=== PATIENT | male | born 1935 | race Caucasian/White ===

== ENCOUNTER 2018-09-13 06:53 | Inpatient (IN) | payer OTHER ==
[2018-09-13 07:45] LABS: #Eosinphils 0.1 thou/uL (0.0-0.7); #Lymphocytes 1.3 thou/uL (1.20-3.40); #Neutrophils 4.8 thou/uL (1.40-6.50); %Basophils 0.1 % (0.0-1.0); %Eosinophils 0.9 % (0.0-10.0); %Lymphocytes 17.9 % (21.0-51.0); %Monocytes 13.6 % (0.0-10.0); %Neutrophils 67.5 % (42.0-75.0); Hemoglobin 15.6 g/dL (14.0-18.0); Mean Corpuscular HGB CONC 32.7 g/dL (32.0-36.0); Mean Corpuscular Hemoglobin 31.6 pg (27.0-31.0); Mean Corpuscular Volume 96.7 fL (78.0-98.0); Mean Platelet Volume 8.3 fL (7.4-10.4); Platelet Count 242 thou/uL (130-400); Red Blood Cell (RBC) Count 4.95 mill/uL (4.70-6.10); White Blood Cell (WBC) Count 7.1 thou/uL (4.8-10.8)
[2018-09-13 07:49] LABS: INR-International Normal Ratio 1.1; PTT 28.3 SEC (22.9-36.1); Prothrombin Time 14.2 SEC (12.0-14.7)
[2018-09-13 08:11] LABS: ALT (SGPT) 22 U/L (8-55); AST (SGOT) 29 U/L (5-34); Alkaline Phosphatase 65 U/L (40-150); Anion Gap 16 mmol/L (10-20); BUN (Urea Nitrogen) 15 mg/dL (8.4-25.7); Bilirubin, Total 0.7 mg/dL (0.2-1.2); Calc. Creatinine Clearance 0 mL/min (70-130); Calcium 8.8 mg/dL (7.8-10.44); Carbon Dioxide 22 mmol/L (23-31); Chloride 102 mmol/L (98-107); Estimated GFR-MDRD 84; Globulin 2.6 g/dL (2.4-3.5); Glucose 107 mg/dL (83-110); Magnesium 2.1 mg/dL (1.6-2.6); Potassium 3.6 mmol/L (3.5-5.1); Protein, Total 6.6 g/dL (5.8-8.1); Sodium 136 mmol/L (136-145)
[2018-09-13 08:55] LABS: Bilirubin Negative (Negative); Blood, Urine Negative (Negative); Clarity CLEAR (Clear); Glucose, Urine (Dipstick) Negative (Negative); Leukocyte Negative (Negative); Nitrite Negative (Negative); Protein, Urine (Dipstick) Negative (Neg-Trace); Specific Gravity, Urine 1.013 (1.002-1.036); pH, Urine 6.5 (5.0-9.0)
--- NOTE | 2018-09-13 09:08 | RAD ---
RADIOGRAPH CHEST 1 VIEW: Date: 09-13-18 Time: 6:31 a.m. HISTORY: 83-year-old male with chest pain and tachycardia with atrial fibrillation. COMPARISON: None available. FINDINGS: Cardiac size within normal limits for AP technique. Nonspecific mildly increased density at the media l lung bases bilaterally. Upper and mid lung zones are grossly clear. Atherosclerotic calcification a nd ectasia of the thoracic aorta. No pneumothorax or pulmonary edema. IMPRESSION: 1. Nonspecific mild bibasilar pulmonary densities, probably chronic. 2. Atherosclerosis, ectasia and tortuosity of thoracic aorta. 3. No definite acute findings. AMNA POS: LORETO
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
[2018-09-13] MEDS ORDERED: Aspirin 81 mg Enteric Coated Tablet PO SCH (11:00)
[2018-09-13 12:04] LABS: Troponin I Less than 0.010 ng/mL (< 0.028)
[2018-09-13 12:18] VITALS: BMI 26.8
[2018-09-13 14:31] LABS: Troponin I Less than 0.010 ng/mL (< 0.028)
[2018-09-13] MEDS ORDERED: Digoxin 0.5 MG/2 ML AMP SLOW IVP SCH ×2 (17:45→22:00)
[2018-09-13] MEDS ORDERED: Mometasone 100 MCG HFA INHALER INH SCH (20:00)
[2018-09-13] MEDS ORDERED: Fluticasone Propionate HFA 110 MCG AER INH SCH (21:00)
[2018-09-13] MEDS: Metoprolol Tartrate 25 MG TAB PO SCH (21:51)
--- NOTE | 2018-09-14 00:29 | CON ---
DATE OF CONSULTATION: HISTORY OF PRESENT ILLNESS: Karina Stark is an 83-year-old white male inmate, who apparently recently was moved from another nursing home facility. Yesterday morning, he started to have pain on the left side of his chest, radiated up to the right side of his face as well as feeling weak, somewhat diaphoretic. States that he could feel his heart beating rapidly with that. He denies any cardiac problems in the past. He is on verapamil for unclear reasons, but probably for hypertension. He ultimately went to [facility] and was found to have an irregular heart rhythm and referred for further evaluation. PAST MEDICAL HISTORY: Hypertension, asthma, umbilical hernia, vision loss, arthritis. PAST SURGICAL HISTORY: Tonsillectomy. MEDICATIONS: 1. Calcium carbonate 500 daily. 2. Colace 100 b.i.d. 3. Atrovent 2 puffs q.i.d. 4. Flovent inhalation b.i.d. 5. Ibuprofen 600 b.i.d. 6. Meclizine 25 t.i.d. 7. Omeprazole 20 daily. 8. Prazosin 10 mg at bedtime. 9. Verapamil 240 daily. 10. Hydrochlorothiazide 25 mg daily, which apparently was recently increased to 50 daily. SOCIAL HISTORY: He smoked until 1984. He does not drink alcohol. He is an inmate. FAMILY HISTORY: Negative for coronary artery disease. REVIEW OF SYSTEMS: A 12-point review of systems is otherwise unremarkable. PHYSICAL EXAMINATION: VITAL SIGNS: Blood pressure 120/70, pulse 70. HEENT: PERRL. NECK: Supple. CHEST: Clear. CARDIAC: S1 and S2 normal without any S3, S4, or murmurs. Carotid upstrokes normal without bruits. ABDOMEN: Normal bowel sounds without tenderness or organomegaly or masses. EXTREMITIES: Revealed no clubbing, cyanosis, or edema. NEUROLOGICAL: Grossly intact. SKIN: Warm and dry. LABORATORY DATA: EKG from nursing home is incomplete without rhythm strip or V1 and V2. I doubt that this represents atrial fibrillation in that there appears to be a P-wave prior to each QRS that is discernible. This appears to be paroxysmal atrial tachycardia. Also, the EKG here likewise shows a P-wave in front of each QRS with episodes of paroxysmal atrial tachycardia. Cardiac enzymes are unremarkable. Sodium 136, potassium 3.6, chloride 102, carbon dioxide 22, BUN 15, and creatinine 0.87. CBC is unremarkable. INR 1.1. Urinalysis was unremarkable. IMPRESSION: 1. Chest discomfort associated with tachycardia and negative cardiac enzymes. 2. Paroxysmal atrial tachycardia, I doubt that this represents atrial fibrillation in that there appears to be a P-wave in front of most QRS', where it is discernible. 3. Hypertension. 4. Former smoker. 5. Asthma. PLAN: Echocardiogram will be performed to assess left ventricular function. With his 2 hours of chest discomfort, he will undergo Lexiscan Cardiolite testing. He will be loaded with digoxin and be placed on low-dose beta-leon. I will follow the patient with you. Job ID: [id number] [facility]
--- NOTE | 2018-09-14 06:21 | PDOC.FM ---
- Subjective Subjective: Pt reports doing well this morning. Denies any acute events overnight. Denies any SOB. Denied any chest pain overnight. Pt denies any dizziness, lightheadness or vision changes. Pt denies any fever or chills. - Objective MAR Reviewed: Yes Vital Signs & Weight: Vital Signs (12 hours) Temp Pulse Resp BP Pulse Ox 09/14/18 04:00 97.5 F L 63 18 137/64 97 09/13/18 21:51 72 09/13/18 20:25 66 16 99 09/13/18 19:40 97.9 F 72 22 H 143/64 H 98 Weight Weight 77.655 kg Result Diagrams: 09/13/18 07:30 09/13/18 07:30 EKG Reviewed by me: Yes Radiology Reviewed by me: Yes (ECHO pending. No other new imaging to review) Phys Exam - Physical Examination Constitutional: NAD HEENT: PERRLA, moist MMs Neck: no nodes, no JVD, supple, full ROM Respiratory: no wheezing, no rales, no rhonchi, clear to auscultation bilateral Cardiovascular: RRR, no significant murmur Gastrointestinal: soft, non-tender, no distention, positive bowel sounds Musculoskeletal: no edema, pulses present Neurological: non-focal, normal sensation, moves all 4 limbs Lymphatic: no nodes Psychiatric: normal affect, A&O x 3 Skin: no rash, normal turgor Dx/Plan (1) Atrial tachycardia, paroxysmal Status: Acute (2) New onset a-fib Code(s): I48.91 - UNSPECIFIED ATRIAL FIBRILLATION Status: Ruled-out (3) Atrial fibrillation with RVR Code(s): I48.91 - UNSPECIFIED ATRIAL FIBRILLATION Status: Ruled-out (4) HTN (hypertension) Code(s): I10 - ESSENTIAL (PRIMARY) HYPERTENSION Status: Acute (5) Asthma Code(s): J45.909 - UNSPECIFIED ASTHMA, UNCOMPLICATED Status: Acute (6) GERD (gastroesophageal reflux disease) Code(s): K21.9 - GASTRO-ESOPHAGEAL REFLUX DISEASE WITHOUT ESOPHAGITIS Status: Acute - Plan Plan: Paroxysmal Atrial Tachycardia w/ Chest Discomfort -Tachy resolved at time of assessment in the ER. -PT rate in 90's and low 100's. Started on ASA. No need for medication for rate control at this time -Cardiology- Dr. Strickland consulted, follow recs. Thinks more atrial tachycardia instead of A.fib Will get cardiolite stress test today. -NPO til stress test complete -Troponin normal x3 - TSH normal. BNP normal. No acute lab abnormalities. HTN -BP stable at this time. Will hold home bp medications -Started on low dose beta leon Asthma -Continue home inhalers GERD -continue home meds once reconciled. Addendum - Attending - Attending Attestation Date/Time: 09/14/18 6006 I personally evaluated the patient and discussed the management with Dr. Chand I agree with the History, Examination, Assessment and Plan documented above with any addition or exceptions noted below.
[2018-09-14] MEDS ORDERED: Mometasone 100 MCG HFA INHALER INH SCH (06:30)
[2018-09-14] MEDS ORDERED: Aspirin Chewable 81 MG TAB PO SCH (09:00)
[2018-09-14] MEDS ORDERED: Regadenoson 0.4 MG/5 ML SYRINGE ONE (10:00)
[2018-09-14] MEDS: Metoprolol Tartrate 25 MG TAB PO SCH (10:48)
--- NOTE | 2018-09-14 12:15 | NM ---
CARDIAC SPECT WITH EF AND WALL MOTION: HISTORY: Chest pain. Hypertension. Asthma. TECHNIQUE: This is a Lexiscan sestamibi study. The patient was injected with 31.5 millicuries technetium 99m sestamibi intravenously for stress imag es and 10.5 millicuries technetium 99m sestamibi intravenously for resting images. Multiple SPECT images in the short axis, vertical long axis, and horizontal long axis. FINDINGS: No scan evidence for infarct or ischemia. TID: 1.24 LHR: 0.36 EDV: 82 mL. EF: 62%. MYOCARDIAL PERFUSION WALL MOTION: Wall motion is normal. IMPRESSION: Unremarkable cardiac SPECT with ejection fraction and wall motion. POS: LORETO
[2018-09-14 18:26] VITALS: BP 146/80; TEMP 98.6
--- NOTE | 2018-09-15 13:56 | DIS ---
DATE OF ADMISSION: 09/13/2018 DATE OF DISCHARGE: 09/14/2018 RESIDENT: Chad Chand MD, PGY-2. CONSULTS: Include Cardiology, Dimitris Strickland MD. PROCEDURES: He had a stress test done, which was negative. IMAGING: Chest x-ray 09/13/2018 showed: 1. Nonspecific mild bibasilar pulmonary densities, possibly chronic. 2. Atherosclerosis, ectasia, and tortuosity of thoracic aorta. 3. No definite acute findings. The 09/14/2018 stress test, nuclear medicine showed unremarkable cardiac SPECT with ejection fraction and wall motion and then he also had an echocardiogram done on 09/14/2017, which showed EF of 50% of 55%. EA flow reversal noted, suggestive of diastolic dysfunction, aortic valve sclerosis. DISCHARGE DIAGNOSES: 1. Proximal atrial tachycardia. 2. Hypertension. 3. Asthma. 4. GERD. DISCHARGE MEDICATIONS: Include: 1. Metoprolol 25 mg p.o. b.i.d. 2. Albuterol sulfate 2 puffs inhaler q.i.d. 3. Aspirin 81 mg p.o. daily. 4. Calcium carbonate 500 mg daily. 5. Docusate 100 mg p.o. b.i.d. 6. Flovent 110 mcg inhaler b.i.d. 7. Hydrochlorothiazide 25 mg p.o. daily. 8. Ibuprofen 600 mg p.o. b.i.d. 9. Atrovent 2 puffs inhaler q.i.d. 10. Meclizine 25 mg p.o. t.i.d. 11. Omeprazole 20 mg p.o. daily. 12. Polyvinyl alcohol 2 drops each eye b.i.d. 13. Sodium chloride one spray each naris t.i.d. 14. Terazosin 10 mg p.o. at bedtime. 15. one application topical b.i.d. BRIEF HOSPITAL COURSE: This is an 83-year-old male who came in with a 2-day history of chest discomfort radiating up the right side, just feeling weak for few hours at a time, went to the [facility] and was sent here, was noted by EMS to be in the atrial fibrillation with RVR. When he got to the ER, his heart rate was in 90s to 100s. His EKG seemed to show atrial fibrillation. At this time, his CBC was normal. Chemistry, no electrolyte abnormalities. Rule out troponins x3 which were negative. TSH was normal. At this time, we consulted Cardiology. They looked at EKG and thought that he was actually having atrial tachycardia, so at this time, they ordered stress test and echo. Stress test came back negative. Echo showed findings as above. At this time, we switched his medication to carvedilol for heart rate management and continue his other medications as prescribed. DISPOSITION: Stable. FOLLOWUP: Will need to follow up with Cardiology in a month and need to follow up with primary care provider within 14 days for hospital followup. ACTIVITY: As tolerated. DISCHARGE LOCATION: Back to residential. DIET RESTRICTION: Heart healthy diet. Job ID: [id number]
== END 2018-09-14 18:29 | DRG 310 ==
LOC: EEVIPCON 06:53 → ERS 06:53 → OBSVTOIN 09:15 → 2SW 09:15 → 2NO 18:11
PROVIDERS: ADMIT Family Medicine; ATTEND Family Medicine
DX: I48.91 Unspecified atrial fibrillation (principal); I47.1 Supraventricular tachycardia; I10 Essential (primary) hypertension; J45.909 Unspecified asthma, uncomplicated; K21.9 Gastro-esophageal reflux disease without esophagitis; M19.90 Unspecified osteoarthritis, unspecified site; Z90.89 Acquired absence of other organs; Z98.890 Other specified postprocedural states; Z87.891 Personal history of nicotine dependence; Z79.899 Other long term (current) drug therapy
CPT/HCPCS: 36415; 71045; 78452; 80053; 81003; 83735; 83880; 84443; 84484; 85025; 85610; 85730; 93005; 93017; 93306; A9500; J1160; J2785